=== PATIENT | female | born 1955 | race Caucasian/White ===

== ENCOUNTER → 2018-05-04 12:22 | Outpatient (CLI) | payer MEDICARE, SELFPAY ==
--- NOTE | 2018-05-04 | DI.US.S_ITS ---
ULTRASOUND OF RIGHT BREAST AND AXILLA: 05/04/2018 CLINICAL: Patient returns today to evaluate a density in the right breast. Patient also sees 'saggy' underarm skin in mirror. Comparison is made to exams dated: 05/04/2018 mammogram - [facility], 11/09/2017 mammogram, and 11/05/2015 mammogram - [facility]. Color flow and real-time ultrasound of the right breast axilla were performed. Starr scale images of the real-time examination were reviewed. No abnormalities were seen sonographically in the right breast or the right axilla. IMPRESSION: NEGATIVE There is no sonographic evidence of malignancy. There is no abnormality seen in the right breast to correspond with the area of clinical concern in the axilla or the upper outer quadrant of the right breast where now resolved asymmetry was noted on 2018 mammogram, however, clinical followup is recommended. Return to annual mammogram screening schedule is recommended which is due in approximately 6 months. This exam was interpreted at Station ID: [id number]. Electronically Signed By: Carlton moyer/:05/04/2018 14:17:13 letter sent: Normal Exam Ultrasound BI-RADS: 1 Negative
--- NOTE | 2018-05-04 | DI.MG.S_ITS ---
UNILATERAL RIGHT DIGITAL DIAGNOSTIC MAMMOGRAM 3D/2D WITH ADDITIONAL VIEWS: 05/04/2018 CLINICAL: Additional evaluation requested from prior study. Comparison is made to exams dated: 11/09/2017 mammogram and 11/05/2015 mammogram - [facility]. There are scattered fibroglandular elements in right breast. The asymmetry in the right breast at 9 o'clock middle depth is no longer seen. This is consistent with summation artifact. No other significant masses or calcifications are seen in the breast. IMPRESSION: INCOMPLETE: NEEDS ADDITIONAL IMAGING EVALUATION An ultrasound is recommended to confirm the no longer seen asymmetry in the right breast middle depth. The previously described asymmetry disperses with additional views and is consistent with summation artifact. There is no abnormality seen in the right axilla to correspond with the area of clinical concern and palpable abnormality in the right axilla, however, ultrasound is recommended. This exam was interpreted at Station ID: [id number]. NOTE: For mammograms, a report in lay terms will be sent to the patient. Approximately 15% of breast malignancies will not be visualized mammographically. In the management of a palpable breast mass, a negative mammogram must not discourage biopsy of a clinically suspicious lesion. SUMMARY: An ultrasound is scheduled to immediately follow this examination. Electronically Signed By: Carlton Lockett M.D. aty/:05/04/2018 14:13:36 ACR BI-RADS Category 0: Incomplete [id number]
== END ==
PROVIDERS: PCP Family Medicine; Visit Provider Family Medicine
DX: R92.8 Other abnormal and inconclusive findings on diagnostic imaging of breast (principal)
CPT/HCPCS: 76642; 77065; G0279

== ENCOUNTER → 2020-07-16 08:55 | Outpatient (CLI) | payer MEDICARE, SELFPAY ==
[2020-07-16 19:43] LABS: Add Manual Diff / Slide Review NO; Basophils Absolute Auto 100 /uL (0-100); Basophils Percent Auto 1.3 % (0-2); Eosinophils Absolute Auto 200 /uL (0-450); Eosinophils Percent Auto 3.5 % (2-4); Hematocrit 46.6 % (36-46); Hemoglobin 15.3 g/dL (12.0-16.0); Lymphocytes Absolute Auto 1300 /uL (1100-4500); Lymphocytes Percent Auto 24.8 % (25-40); Mean Corpuscular HGB Conc 32.9 % (30-36); Mean Corpuscular Hemoglobin 30.7 PG (26-34); Mean Corpuscular Volume 93.2 fL (80-100); Monocytes Absolute Auto 500 /uL (0-900); Neutrophils Absolute Auto 3300 /uL (1500-7000); Neutrophils Percent Auto 61.4 % (50-75); Platelet Count 246 X10^3/uL (150-400); Red Blood Cell Count 4.99 X10^6/uL (4.0-5.2); Red Cell Distribution Width 13.7 % (11.6-14.8); White Blood Cell Count 5.3 X10^3/uL (4.5-11.0)
[2020-07-16 19:51] LABS: BUN Creatinine Ratio 25.7 (6-22); Blood Urea Nitrogen 18 mg/dL (7-17); Calcium 9.8 mg/dL (8.4-10.2); Carbon Dioxide 26 mmol/L (22-32); Chloride 107 mmol/L (98-107); Estimated Glomerular Filt Rate > 60.0 mL/min (>60); Glucose 97 mg/dL (80-110); HEMOLYSIS < 15 (0-50); Potassium 4.5 mmol/L (3.4-5.1); Sodium 141 mmol/L (137-145)
[2020-07-16 20:25] LABS: Thyroid Stimulating Hormone 3.75 uIU/mL (0.47-4.68)
== END ==
PROVIDERS: PCP Family Medicine; Visit Provider Family Medicine
DX: E07.9 Disorder of thyroid, unspecified (principal); E55.9 Vitamin D deficiency, unspecified
CPT/HCPCS: 80048; 84443; 85025

== ENCOUNTER → 2021-11-06 09:41 | Outpatient (CLI) | payer MEDICARE, SELFPAY ==
[2021-11-06 20:30] LABS: Influenza A - CEPHEID Flu A NEGATIVE (NEGATIVE); Influenza B - CEPHEID Flu B NEGATIVE (NEGATIVE); Respiratory Syncytial Virus Negative (Negative)
[2021-11-06 20:31] LABS: COVID-19 CEPHEID PCR (VTM/NP) Negative (Negative)
== END ==
PROVIDERS: PCP Family Medicine; Visit Provider Physician Assistant Medical
DX: R05.9 Cough, unspecified (principal); Z20.822 Contact with and (suspected) exposure to COVID-19
CPT/HCPCS: 0241U

== ENCOUNTER 2023-03-10 13:20 | Emergency (ER) | payer MEDICARE, SELFPAY ==
[2023-03-10] VITALS (7 sets, daily range): BP systolic 109–128; BP diastolic 65–96; PULSE 68–109; RESP 16–21; TEMP 36.8; O2SAT 92–97
--- NOTE | 2023-03-10 13:41 | DI.CT.S_ITS ---
PROCEDURE: CT ABDOMEN PELVIS W CON INDICATIONS: RLQ ABDOMINAL PAIN TECHNIQUE: After the administration of intravenous contrast, axial sections acquired from the lung bases to the pubic symphysis. Coronal and sagittal reformats were performed. For radiation dose reduction, the following was used: automated exposure control, adjustment of mA and/or kV according to patient size. COMPARISON: None. FINDINGS: Image quality: Diagnostic. Lower Chest: No significant findings. ABDOMEN: Liver: No solid mass. Gallbladder: No radiopaque gallstones or wall thickening. Biliary ducts: No biliary dilation. Pancreas: No ductal dilation. Spleen: Size is within normal limits. Adrenal Glands: No adrenal nodules. Kidneys and Ureters: No hydronephrosis. No solid mass. No complex renal cystic lesion which requires follow up. Stomach and Bowel: Normal colonic caliber, without significant wall thickening. Normal appendix. Peritoneum: There is a small amount of ascites. Scattered ground-glass densities within the peritoneal fat. No free air. Ventral Wall: No hernia. Abdominal Nodes: No retroperitoneal or mesenteric adenopathy by size criteria. Vessels: Aorta and inferior vena cava are normal in size. PELVIS: Pelvic Organs: There is a complex cystic and solid mass within the left adnexal location measuring 90 mm diameter. Bladder: Unremarkable. Pelvic Nodes: No enlarged lymph nodes. Miscellaneous: No inguinal hernias are seen. Bones: Chronic versus subacute moderate compression fractures of T11 and T12. 8 mm of retropulsion at the superior T12 level, with moderate consequent canal stenosis. IMPRESSION: 1. Left ovarian malignancy. 2. Ascites and mesenteric ground-glass densities, suggestive of peritoneal carcinomatosis. 3. Chronic versus subacute T11-T12 compression fractures as above. Dictated by: Edith Dillard M.D. on 03/10/2023 at 15:49 Approved by: Edith Dillard M.D. on 03/10/2023 at 15:52
--- NOTE | 2023-03-10 13:42 | ED_ITS ---
HPI - Abdominal Pain General Chief Complaint: Abdominal Pain Stated Complaint: abdominal pain, thinks appendicitis Time Seen by Provider: 03/10/23 13:25 History of Present Illness HPI narrative: 59-year-old female with history of left-sided ovarian mass (currently under investigation) presents with right lower quadrant abdominal pain since last night. Pain is sharp, nonradiating, constant with intermittent worsening. She states that she has an appointment with [facility] [employer] [facility] tomorrow at [facility] to discuss surgical biopsy of the ovarian mass, but states that blood tests were reassuring. Related Data Home Medications Medication Instructions Recorded Confirmed cholecalciferol (vitamin D3) 25 25 mcg PO DAILY 07/11/20 01/09/21 mcg (1,000 unit) tablet cyanocobalamin (vitamin B-12) 100 100 mcg PO DAILY 07/11/20 01/09/21 mcg tablet Previous Rx's Medication Instructions Recorded clotrimazole-betamethasone 1 1 applic topical BID 2 weeks #15 07/16/20 %-0.05 % topical cream grams levothyroxine 150 mcg tablet 75 mcg (1/2 x 150 mcg) PO DAILY 02/26/22 #45 tabs hydrocodone 5 mg-acetaminophen 325 1 tab PO Q4-6H PRN pain #14 tabs 03/10/23 mg tablet ondansetron 4 mg disintegrating 4 mg PO Q8H PRN nausea and 03/10/23 tablet vomiting #30 tabs Allergies Allergy/AdvReac Type Severity Reaction Status Date / Time No Known Drug Allergies Allergy Verified 01/09/21 14:27 seasonal Allergy Intermediate Uncoded 01/09/21 14:27 Review of Systems Review of Systems Narrative: Negative except as noted above Patient History Surgical History H/O breast biopsy Hx of tonsillectomy H/O hernia repair H/O colonoscopy Social History Smoking Status: Never smoker Smoking Status: Never smoker Exam Initial Vital Signs Initial Vital Signs: Vital Signs Temperature 98.2 F 03/10/23 13:25 Pulse Rate 109 H 03/10/23 13:25 Respiratory Rate 16 03/10/23 13:25 Blood Pressure 121/96 H 03/10/23 13:25 Pulse Oximetry 97 03/10/23 13:25 Oxygen Delivery Method Room Air 03/10/23 13:25 Const: Awake, alert, no acute distress, nontoxic appearing Cardiac: regular rate, regular rhythm RESP: unlabored, clear bilaterally, no wheezing GI: Atraumatic, soft, right lower quadrant and left lower quadrant tenderness to palpation, no rebound, no guarding MSK: Atraumatic, full range of motion, pulses equal Skin: Warm, Dry, intact, no rashes Neuro: AO x3, CN II-XII grossly intact, moves all extremities Psych: affect normal, mood normal, not suicidal, not homicidal Course Orders Ordered: Discontinued Medications Hydrocodone Bitart/Acetaminophen (Hydrocodone/Acet 5/325 Prepack) 1 bottle MISC DIRECTED ONE Stop: 03/10/23 16:20 Last Admin: 03/10/23 16:32 Dose: 1 bottle Documented By: GLADYS Morphine Sulfate (Morphine 4 Mg/Ml Inj) 4 mg IV NOW ONE Stop: 03/10/23 13:42 Last Admin: 03/10/23 14:38 Dose: 2 mg Documented By: GLADYS Ondansetron HCl (Ondansetron 4 Mg Odt) 4 mg PO NOW PRN PRN Reason: Nausea And Vomiting Ondansetron HCl (Ondansetron 4 Mg/2 Ml Inj) 4 mg IV NOW PRN PRN Reason: Nausea And Vomiting Last Admin: 03/10/23 14:09 Dose: 4 mg Documented By: GLADYS Vital Signs Vital signs: Vital Signs - 8 hr 03/10/23 13:25 03/10/23 14:12 03/10/23 14:20 Temperature 98.2 F Pulse Rate 109 H 90 83 Respiratory Rate 16 Blood Pressure 121/96 H Pulse Oximetry 97 95 92 Oxygen Delivery Method Room Air Room Air 03/10/23 14:20 03/10/23 14:31 03/10/23 14:31 Temperature Pulse Rate 86 Respiratory Rate Blood Pressure 128/78 121/71 Pulse Oximetry 93 Oxygen Delivery Method 03/10/23 15:00 Temperature Pulse Rate 71 Respiratory Rate Blood Pressure Pulse Oximetry 93 Oxygen Delivery Method Room Air MDM - Abdominal Pain Differential Diagnosis Differential diagnosis: Likely abdominal pain, acute appendicitis and calculus of kidney Lab Data 03/10/23 13:55 03/10/23 13:55 Labs: Lab Results 01/17/24 01/17/24 Range/Units 13:55 15:36 WBC 12.0 H (4.5-11.0) X10^3/uL RBC 4.95 (4.0-5.2) X10^6/uL Hgb 14.9 (12.0-16.0) g/dL Hct 44.6 (36-46) % MCV 90.2 (80-100) fL MCH 30.0 (26-34) PG MCHC 33.3 (30-36) % RDW 13.5 (11.6-14.8) % Plt Count 238 (150-400) X10^3/uL Neut % (Auto) 87.4 H (50-75) % Lymph % (Auto) 6.0 L (25-40) % [place] % (Auto) 6.0 (3-14) % Eos % (Auto) 0.1 L (2-4) % Baso % (Auto) 0.5 (0-2) % Neut # (Auto) 52424 H (8343-4920) /uL Lymph # (Auto) 700 L (3895-4821) /uL [place] # (Auto) 700 (0-900) /uL Eos # (Auto) 0 (0-450) /uL Baso # (Auto) 100 (0-100) /uL Sodium 137 (137-145) mmol/L Potassium 4.1 (3.4-5.1) mmol/L Chloride 105 (98-107) mmol/L Carbon Dioxide 24 (22-32) mmol/L BUN 18 H (7-17) mg/dL Creatinine 0.58 (0.52-1.04) mg/dL Estimated GFR > 60 (>60) mL/min BUN/Creatinine Ratio 31.0 H (6-22) Glucose 140 H (80-110) mg/dL Calcium 10.2 (8.4-10.2) mg/dL Total Bilirubin 1.2 (0.2-1.3) mg/dL AST 23 (14-36) IU/L ALT 18 (<35) IU/L Alkaline Phosphatase 85 (38-126) U/L Total Protein 7.4 (6.3-8.2) g/dL Albumin 4.1 (3.5-5.0) g/dL Globulin 3.3 (1.7-4.1) g/dL Albumin/Globulin Ratio 1.2 (1.0-2.8) Lipase 51 (23-300) U/L Ur Bilirubin Confirm TNP Urine RBC None seen (0-5/HPF) Urine WBC None seen (0-5/HPF) Ur Squamous Epith Cells 0-1 /hpf (0-5/HPF) Urine Bacteria None seen (None) Point of care testing: Urine Dip Bedside Urine Glucose Negative Bedside Urine Bilirubin + 1 Bedside Urine Ketone +/- 5 Urine Specific [place] 1.030 Bedside Urine Occult Blood - Negative Bedside Urine pH 6.0 Bedside Urine Protein +/- 15 Bedside Urine Urobilinogen - Negative Bedside Urine Nitrite - Negative Bedside Urine Leukocytes - Negative Esterase MDM Narrative Medical decision making narrative: Right lower quadrant pain and patient with known ovarian mass. Abdomen is soft but she is tender in the right lower quadrant. Pain and nausea medications ordered. We will order labs and CT imaging. Laboratory work is reviewed, mild leukocytosis 12.0, nonspecific. Chemistry within normal limits. No evidence of UTI. CT of the abdomen and pelvis is reviewed, there is mild trace ascites in the upper quadrants, radiology notes ground-glass mesenteric densities which is suggestive of peritoneal carcinomatosis. The known mass in the left pelvis is reported to be complex cystic and solid measuring 9 cm in diameter. In addition there appeared to be chronic T11 and T12 compression fractures noted, however patient denies back pain to myself. A copy of the images was pushed to [facility] by radiology, and a printout of the radiology report was provided to the patient and her . 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 I explained that I could not definitively diagnosed cancer without biopsy, however it was very concerning and definitely requires close follow up with specialist. Patient already has scheduled follow up at [facility] tomorrow with [facility] [employer] to discuss possible surgical biopsy versus other treatments. She was informed that the images had been sent over to [facility] and was instructed to bring a copy of the CT report with her to her appointment tomorrow. Pain medications provided. Discharge Plan Departure Patient Disposition: Home Clinical Impression: Abnormal computed tomography angiography (CTA) of abdomen and pelvis Abdominal pain Qualifiers: Abdominal location: right lower quadrant Qualified Code(s): R10.31 - Right lower quadrant pain Instructions: DI for Abdominal Pain-Adult Prescriptions: New ondansetron 4 mg tablet,disintegrating 4 mg PO Q8H PRN (Reason: nausea and vomiting) Qty: 30 0RF hydrocodone-acetaminophen 5-325 mg tablet 1 tab PO Q4-6H PRN (Reason: pain) Qty: 14 0RF No Action levothyroxine 150 mcg tablet 75 mcg PO DAILY Qty: 45 0RF Rx Instructions: TAKE 0.5 TABLET (75 MCG) BY MOUTH DAILY ON AN EMPTY STOMACH clotrimazole-betamethasone 1-0.05 % cream 1 applic topical BID 14 Days Qty: 15 3RF cyanocobalamin (vitamin B-12) 100 mcg tablet 100 mcg PO DAILY cholecalciferol (vitamin D3) 25 mcg (1,000 unit) tablet 25 mcg PO DAILY Referrals: Arlen Medel MD [Primary Care Provider] - Stand Alone Forms: Patient Portal/API
[2023-03-10 14:02] LABS: Add Manual Diff / Slide Review NO; Basophils Absolute Auto 100 /uL (0-100); Basophils Percent Auto 0.5 % (0-2); Eosinophils Absolute Auto 0 /uL (0-450); Eosinophils Percent Auto 0.1 % (2-4); Hematocrit 44.6 % (36-46); Hemoglobin 14.9 g/dL (12.0-16.0); Lymphocytes Absolute Auto 700 /uL (1100-4500); Mean Corpuscular HGB Conc 33.3 % (30-36); Mean Corpuscular Volume 90.2 fL (80-100); Monocytes Absolute Auto 700 /uL (0-900); Neutrophils Absolute Auto 10500 /uL (1500-7000); Neutrophils Percent Auto 87.4 % (50-75); Platelet Count 238 X10^3/uL (150-400); Red Blood Cell Count 4.95 X10^6/uL (4.0-5.2); Red Cell Distribution Width 13.5 % (11.6-14.8)
[2023-03-10] MEDS: ONDANSETRON 4 MG/2 ML INJ IV (14:09)
[2023-03-10 14:33] LABS: Alanine Aminotransferase 18 IU/L (<35); Albumin 4.1 g/dL (3.5-5.0); Albumin Globulin Ratio 1.2 (1.0-2.8); Alkaline Phosphatase 85 U/L (38-126); Aspartate Aminotransferase 23 IU/L (14-36); Bilirubin Total 1.2 mg/dL (0.2-1.3); Blood Urea Nitrogen 18 mg/dL (7-17); Calcium 10.2 mg/dL (8.4-10.2); Carbon Dioxide 24 mmol/L (22-32); Chloride 105 mmol/L (98-107); Estimated Glomerular Filt Rate > 60 mL/min (>60); Globulin 3.3 g/dL (1.7-4.1); Glucose 140 mg/dL (80-110); HEMOLYSIS < 15 (0-50); Lipase 51 U/L (23-300); Potassium 4.1 mmol/L (3.4-5.1); Sodium 137 mmol/L (137-145); Total Protein 7.4 g/dL (6.3-8.2)
[2023-03-10] MEDS: MORPHINE 4 MG/ML INJ IV (14:38)
[2023-03-10 16:28] LABS: Bacteria Urine None Seen; RBC Urine None Seen (0-5/HPF); Squamous Epithelial Cell Urine 0-1 /HPF (0-5/HPF); WBC Urine None Seen (0-5/HPF)
[2023-03-10] MEDS: HYDROCODONE/ACET 5/325 PREPACK 1 BOTTLE MISC (16:32)
== END 2023-03-10 16:40 | disposition home or self-care (01) ==
PROVIDERS: Emergency Provider Emergency Medicine; PCP Specialist
DX: R10.31 Right lower quadrant pain (principal); R93.5 Abnormal findings on diagnostic imaging of other abdominal regions, including retroperitoneum
CPT/HCPCS: 36415; 74177; 80053; 81003; 81015; 83690; 85025; 87086; 93005; 93010; 96374; 96375; 99284; J2270; J2405; Q9967

== ENCOUNTER → 2023-11-03 07:43 | Outpatient (CLI) | payer MEDICARE, SELFPAY ==
--- NOTE | 2023-11-03 | DI.CT.S_ITS ---
PROCEDURE: CT CHEST ABD PEL W CON INDICATIONS: Malignant neoplasm of left ovary TECHNIQUE: After the administration of intravenous contrast, 5 mm thick sections acquired from the lung apices to the symphysis. 5 mm coronal and sagittal reformats were performed, with additional 7 mm MIP reformats through the lungs. For radiation dose reduction, the following was used: automated exposure control, adjustment of mA and/or kV according to patient size. COMPARISON: Merged With [facility], CT, CT ABDOMEN PELVIS W CON, 03/10/2023, 15:07. FINDINGS: Image quality: Excellent. CHEST: Lungs and Pleura: 7 mm calcified nodule within the lateral left lower lobe (series 3, image 185) and a 5 mm perifissural nodule along the anterior superior segment left lower lobe abutting the major fissure (series 3, image 155). No suspicious pulmonary nodules or masses. No focal airspace opacity or consolidation. No evidence of pneumothorax or pleural effusion. Biapical pleural thickening noted. Lower Neck: No enlarged lymph nodes. Thyroid: 1 cm hypodense nodule within the left thyroid lobe. Axillae: No enlarged lymph nodes. Chest Wall: Unremarkable. Heart: Heart size is normal. No pericardial effusion. Thoracic Vessels: The aorta and pulmonary arteries demonstrate normal size. Mediastinum and [place]: No enlarged lymph nodes. Esophagus: No wall thickening. No hiatal hernia. ABDOMEN: Liver: Several tiny low-density lesions scattered throughout the spleen most likely cysts. No solid focal mass lesion. Gallbladder: No radiopaque gallstones or wall thickening. Biliary ducts: No biliary dilation. Pancreas: No pancreatic mass. No pancreatic duct dilatation or inflammatory changes. Spleen: Size is within normal limits. Adrenal Glands: No adrenal nodules. Kidneys and Ureters: No renal or ureteral calculi. No evidence of hydronephrosis. No solid renal mass. Stomach and Bowel: Small large bowel appear normal in caliber without evidence of bowel obstruction. Diverticulosis of the sigmoid colon without evidence of diverticulitis. Peritoneum: No peritoneal nodules or masses. No evidence of pneumoperitoneum. No abdominal or pelvic fluid collections. Ventral Wall: No significant ventral hernia. Abdominal Nodes: No retroperitoneal or mesenteric adenopathy by size criteria. Vessels: Aorta and inferior vena cava are normal in size. PELVIS: Pelvic Organs: Uterus is surgically absent. Interval resection of left ovarian mass. Bladder: No bladder wall thickening, accounting for underdistention. Pelvic Nodes: No enlarged lymph nodes. Miscellaneous: No inguinal hernias are seen. Bones: No aggressive osseous abnormality. Stable chronic compression deformities of T11 and T12. IMPRESSION: No evidence of recurrence or metastatic disease within the chest, abdomen or pelvis. Dictated by: Rubén Kilpatrick M.D. on 11/03/2023 at 15:24 Approved by: Rubén Kilpatrick M.D. on 11/03/2023 at 15:36
[2023-11-03 08:20] LABS: Estimated Glomerular Filt Rate > 60 mL/min (>60)
== END ==
PROVIDERS: Radiology Diagnostic Radiology; PCP Specialist; Referring Provider Obstetrics & Gynecology; Visit Provider Obstetrics & Gynecology
DX: C56.2 Malignant neoplasm of left ovary (principal); M43.8X4 Other specified deforming dorsopathies, thoracic region; Z90.710 Acquired absence of both cervix and uterus
CPT/HCPCS: 36415; 71260; 74177; 82565; Q9967

== ENCOUNTER → 2023-11-10 13:57 | Outpatient (CLI) | payer MEDICARE, SELFPAY | PROVIDERS: PCP Specialist; Referring Provider Obstetrics & Gynecology; Visit Provider Obstetrics & Gynecology | DX: C56.2 Malignant neoplasm of left ovary (principal) | CPT/HCPCS: 36415 ==

== ENCOUNTER → 2024-05-10 11:42 | Outpatient (CLI) | payer SELFPAY | PROVIDERS: PCP Specialist; Referring Provider Obstetrics & Gynecology; Visit Provider Obstetrics & Gynecology | DX: C56.2 Malignant neoplasm of left ovary (principal) | CPT/HCPCS: 36415 ==

== ENCOUNTER → 2024-06-01 11:25 | Outpatient (CLI) | payer MEDICARE, OTHER, SELFPAY ==
[2024-06-01 20:04] LABS: TSH w/ Reflex to FT4 1.82 uIU/mL (0.47-4.68)
== END ==
PROVIDERS: PCP Specialist; Visit Provider Specialist
DX: E03.9 Hypothyroidism, unspecified (principal)
CPT/HCPCS: 84443

== ENCOUNTER 2024-08-21 14:53 | Emergency (ER) | payer MEDICARE, OTHER, SELFPAY ==
[2024-08-21] VITALS (7 sets, daily range): BP systolic 133–149; BP diastolic 62–85; PULSE 63–94; RESP 17–20; TEMP 36.6–37; O2SAT 92–97; BMI 25.8
--- NOTE | 2024-08-21 15:11 | DI.CT.S_ITS ---
PROCEDURE: CT ABDOMEN PELVIS W CON INDICATIONS: RLQ pain TECHNIQUE: After the administration of intravenous contrast, axial sections acquired from the lung bases to the pubic symphysis. Coronal and sagittal reformats were performed. For radiation dose reduction, the following was used: automated exposure control, adjustment of mA and/or kV according to patient size. COMPARISON: [facility], CT, CT ABDOMEN PELVIS W CON, 03/10/2023, 15:07. FINDINGS: Image quality: Diagnostic. Lower Chest: No significant findings. ABDOMEN: Liver: No solid mass. Well-circumscribed hypodensities are again seen scattered in liver parenchyma too small to adequately characterize. Gallbladder: No radiopaque gallstones or wall thickening. Biliary ducts: No biliary dilation. Pancreas: No ductal dilation. Spleen: Size is within normal limits. Adrenal Glands: No adrenal nodules. Kidneys and Ureters: There is [id number] right-sided hydronephrosis and proximal to mid hydroureter. 4 mm stone is noted in distal right ureter series 2, image 109. No left-sided hydronephrosis or hydroureter. No solid mass. No complex renal cystic lesion which requires follow up. Stomach and Bowel: There is no bowel obstruction. No abnormal bowel wall thickening or mesenteric fat stranding. No abscess collection. Appendix is identified is within normal limits. Sigmoid diverticulosis is seen without CT evidence of acute diverticulitis. Peritoneum: No abnormal intraperitoneal fluid. No free air. Ventral Wall: No significant ventral hernia. Abdominal Nodes: No retroperitoneal or mesenteric adenopathy by size criteria. Vessels: Aorta and inferior vena cava are normal in size. PELVIS: Pelvic Organs: Unremarkable. Bladder: No bladder wall thickening, accounting for underdistention. Pelvic Nodes: No enlarged lymph nodes. Miscellaneous: No inguinal hernias are seen. Bones: No aggressive osseous abnormality. Chronic appearing anterior wedge compression deformity at T11 and T12 levels are again seen. Superior endplate compression deformity at L3 level is seen new since previous study. IMPRESSION: 1. 4 mm distal right ureteral stone with [id number] right-sided hydronephrosis and proximal to mid hydroureter. No left-sided stones or hydronephrosis. 2. No bowel obstruction or abnormal bowel wall thickening. Normal appendix. Sigmoid diverticulosis without CT evidence of acute diverticulitis. 3. Age indeterminate superior endplate compression deformity at L3 level new since 2023 study. Chronic appearing superior endplate compression deformities at T11 and T12 levels. Dictated by: Sheldon Peck M.D. on 08/21/2024 at 16:13 Approved by: Sheldon Peck M.D. on 08/21/2024 at 16:18
[2024-08-21 15:15] LABS: Add Manual Diff / Slide Review NO; Basophils Absolute Auto 0 /uL (0-100); Basophils Percent Auto 0.3 % (0-2); Eosinophils Absolute Auto 0 /uL (0-450); Hematocrit 45.2 % (36-46); Hemoglobin 15.1 g/dL (12.0-16.0); Lymphocytes Absolute Auto 500 /uL (1100-4500); Lymphocytes Percent Auto 4.9 % (25-40); Mean Corpuscular HGB Conc 33.4 % (30-36); Mean Corpuscular Hemoglobin 30.8 PG (26-34); Mean Corpuscular Volume 92.1 fL (80-100); Monocytes Absolute Auto 400 /uL (0-900); Neutrophils Absolute Auto 9900 /uL (1500-7000); Neutrophils Percent Auto 90.8 % (50-75); Platelet Count 286 X10^3/uL (150-400); Red Blood Cell Count 4.91 X10^6/uL (4.0-5.2); Red Cell Distribution Width 13.6 % (11.6-14.8); White Blood Cell Count 10.9 X10^3/uL (4.5-11.0)
[2024-08-21 15:26] LABS: Alanine Aminotransferase 29 IU/L (<35); Albumin 4.7 g/dL (3.5-5.0); Albumin Globulin Ratio 1.3 (1.0-2.8); Alkaline Phosphatase 104 U/L (38-126); Aspartate Aminotransferase 31 IU/L (14-36); BUN Creatinine Ratio 30.6 (6-22); Bilirubin Total 0.7 mg/dL (0.2-1.3); Blood Urea Nitrogen 22 mg/dL (7-17); Carbon Dioxide 24 mmol/L (22-32); Chloride 107 mmol/L (98-107); Estimated Glomerular Filt Rate > 60 mL/min (>60); Globulin 3.6 g/dL (1.7-4.1); Glucose 122 mg/dL (70-99); HEMOLYSIS < 15 (0-50); Potassium 4.5 mmol/L (3.4-5.1); Sodium 140 mmol/L (137-145); Total Protein 8.3 g/dL (6.3-8.2)
[2024-08-21 15:28] LABS: Lactate (Lactic Acid) 1.4 mmol/L (0.7-2.1)
[2024-08-21 16:53] LABS: Appearance Urine UA CLOUDY; Bilirubin Urine UA NEGATIVE (NEGATIVE); Color Urine UA YELLOW; Glucose Urine UA NEGATIVE (Negative); Ketones Urine UA TRACE (NEGATIVE); Leukocyte Esterase Urine UA 1+ (NEGATIVE); Nitrite Urine UA POSITIVE (Negative); Occult Blood Urine UA 3+ (Negative); Protein Urine UA TRACE (Negative); Specific Gravity Urine UA 1.025 (1.000-1.035); pH Urine UA 5.5 (4.5-8.0)
[2024-08-21 16:59] LABS: Bacteria Urine Many (>30); Culture Indicated Urine Specimen Cultured; Mucus Urine 2+ (Negative); RBC Urine 10-30/HPF (0-5/HPF); Squamous Epithelial Cell Urine 0-1 /HPF (0-5/HPF); Urine Volume Low Vol <10mL (spun); WBC Urine 5-10/HPF (0-5/HPF)
[2024-08-21] MEDS: SODIUM CHLORIDE 0.9% 1,000 ML 1000 ML IV (17:04)
--- NOTE | 2024-08-21 17:26 | ED_ITS ---
HPI - General Adult General Chief complaint: Abdominal Pain Stated complaint: Mid stomach pain today Time Seen by Provider: 08/21/24 15:05 Source: patient Mode of arrival: Ambulatory History of Present Illness HPI narrative: 68-year-old woman with a history of hypothyroidism presents with severe right lower quadrant pain awoke her from sleep at 3:00 a.m. she has been vomiting, comes to the ER from [facility]. She states the last time she had pain like this it was a torsed ovarian cyst on the left side she has since had hysterectomy and no longer has either ovary. She has not had an appendectomy. She does not describe fevers, chills, chest pain, palpitations, headache Related Data Home Medications ?Medication ?Instructions ?Recorded ?Confirmed cholecalciferol (vitamin D3) 25 25 mcg PO DAILY 08/21/24 mcg (1,000 unit) tablet cyanocobalamin (vitamin B-12) 100 100 mcg PO DAILY 08/21/24 mcg tablet levothyroxine 75 mcg tablet 75 mcg PO DAILY 09/22/23 0 08/21/24 Previous Rx's ?Medication ?Instructions ?Recorded clotrimazole-betamethasone 1 1 applic topical BID 2 we eks #15 07/16/20 %-0.05 % topical cream grams hydrocodone 5 mg-acetaminophen 325 1 tab PO Q4-6H PRN pain #14 tabs 03/10/23 mg tablet ondansetron 4 mg disintegrating 4 mg PO Q8H PRN nausea and 03/10/23 tablet vomiting #30 tabs oxycodone-acetaminophen 5 mg-325 1 tab PO Q6H PRN pain #14 tabs 08/21/24 mg tablet tamsulosin 0.4 mg capsule 0.4 mg PO DAILY #20 caps Allergies Allergy/AdvReac Type Severity Reaction Status Date / Time No Known Drug Allergies Allergy Verified 08/21/24 14:56 seasonal Allergy Intermediate Uncoded 08/21/24 14:56 Review of Systems Review of Systems Narrative: Pertinent positive and negative findings as per HPI Patient History Surgical History H/O breast biopsy Hx of tonsillectomy H/O hernia repair H/O colonoscopy Social History Smoking Status: Former smoker Smoking Status: Former smoker Exam Initial Vital Signs Initial Vital Signs: Vital Signs Temperature 97.9 F 08/21/24 14:56 Pulse Rate 94 H 08/21/24 14:56 Respiratory Rate 17 08/21/24 14:56 Blood Pressure 140/85 08/21/24 14:56 Pulse Oximetry 95 08/21/24 14:56 Oxygen Delivery Method Room Air 08/21/24 14:56 General: She is in moderate pain but able to cooperate fully with the HEENT: Moist mucous membranes, normal sclera with reactive pupils,clear to auscultation, no wheezing no rales no rhonchi. Full and symmetrical air movement Cardiac: Regular rate and rhythm no murmurs no bruits Abdomen: Soft, significant tenderness in the right lower quadrant without rebound or guarding. She did not have flank tenderness Skin: Warm and dry, no rashes Neurologic: Grossly neurologically intact with no obvious asymmetries or abnormalities Extremities: No trauma, Psych: Cooperative, appropriate insight and affect Course Orders Ordered: ED Orders 08/21/24 15:07 Complete Blood Count AUTO DIFF Stat Comprehensive Metabolic Panel Stat Lactate (Lactic Acid) Stat 08/21/24 15:11 CT abdomen pelvis w con Stat 08/21/24 16:40 Urinalysis and Microscopic Stat Urine Culture Stat Hydromorphone HCl (Hydromorphone 0.5 Mg Inj) 0.5 mg IV Q15MIN PRN PRN Reason: Pain, Discontinued Medications Sodium Chloride (Normal Saline 0.9%) 1,000 mls @ 1,000 mls/hr IV BOLUS ONE Stop: 08/21/24 16:09 Last Admin: 08/21/24 17:04 Dose: 1,000 mls/hr Documented By: TRE Ondansetron HCl (Ondansetron 4 Mg/2 Ml Inj) 4 mg IV NOW ONE Stop: 08/21/24 15:11 Vital Signs Vital signs: Vital Signs - 8 hr 08/21/24 14:56 Temperature 97.9 F Pulse Rate 94 H Respiratory Rate 17 Blood Pressure 140/85 Pulse Oximetry 95 Oxygen Delivery Method Room Air Medical Decision Making Lab Data 08/21/24 15:07 08/21/24 15:07 Labs: Lab Results 06/30/25 06/30/25 Range/Units 15:07 16:40 WBC 10.9 (4.5-11.0) X10^3/uL RBC 4.91 (4.0-5.2) X10^6/uL Hgb 15.1 (12.0-16.0) g/dL Hct 45.2 (36-46) % MCV 92.1 (80-100) fL MCH 30.8 (26-34) PG MCHC 33.4 (30-36) % RDW 13.6 (11.6-14.8) % Plt Count 286 (150-400) X10^3/uL Neut % (Auto) 90.8 H (50-75) % Lymph % (Auto) 4.9 L (25-40) % Gordon % (Auto) 4.0 (3-14) % Eos % (Auto) 0.0 L (2-4) % Baso % (Auto) 0.3 (0-2) % Neut # (Auto) 9900 H (9226-3000) /uL Lymph # (Auto) 500 L (3775-4059) /uL Gordon # (Auto) 400 (0-900) /uL Eos # (Auto) 0 (0-450) /uL Baso # (Auto) 0 (0-100) /uL Sodium 140 (137-145) mmol/L Potassium 4.5 (3.4-5.1) mmol/L Chloride 107 (98-107) mmol/L Carbon Dioxide 24 (22-32) mmol/L BUN 22 H (7-17) mg/dL Creatinine 0.72 (0.52-1.04) mg/dL Estimated GFR > 60 (>60) mL/min BUN/Creatinine Ratio 30.6 H (6-22) Glucose 122 H (70-99) mg/dL Lactate 1.4 (0.7-2.1) mmol/L Calcium 10.0 (8.4-10.2) mg/dL Total Bilirubin 0.7 (0.2-1.3) mg/dL AST 31 (14-36) IU/L ALT 29 (<35) IU/L Alkaline Phosphatase 104 (38-126) U/L Total Protein 8.3 H (6.3-8.2) g/dL Albumin 4.7 (3.5-5.0) g/dL Globulin 3.6 (1.7-4.1) g/dL Albumin/Globulin Ratio 1.3 (1.0-2.8) Urine Color Yellow Urine Appearance Cloudy Urine pH 5.5 (4.5-8.0) Ur Specific [place] 1.025 (1.000-1.035) Urine Protein Trace H (Negative) Urine Glucose (UA) Negative (Negative) g/dL Urine Ketones Trace H (NEGATIVE) Urine Occult Blood 3+ H (Negative) Urine Nitrate Positive H (Negative) Urine Bilirubin Negative (NEGATIVE) Urine Urobilinogen 1.0 (0.2) E.U./dL Ur Leukocyte Esterase 1+ H (NEGATIVE) Urine RBC 10-30/hpf H (0-5/HPF) Urine WBC 5-10/hpf H (0-5/HPF) Ur Squamous Epith Cells 0-1 /hpf (0-5/HPF) Urine Bacteria Many (>30) H (None) Urine Mucus 2+ H (Negative) Ur Culture Indicated? Specimen cultured Vol Urine Centrifuged Low vol <10ml (spun) A MDM Narrative Medical decision making narrative: 68-year-old woman presents with the acute right lower quadrant abdominal pain starting 3:00 a.m.. Labs reassuring with no signs of renal dysfunction, electrolyte abnormalities. CT scan indicates a 4 mm kidney stone in the distal right ureter consistent with the presentation and exam. She has [id number] hydronephrosis. There was no signs of acute appendicitis or alternate explanation that would require further workup or hospitalization. She has responded well to fluids, Dilaudid, Zofran and Toradol. We discussed kidney stones, pain, anticipated course of resolution, went to return to the emergency department and medications for appropriate treatment. At this point she is safe for discharge home Discharge Plan Departure Patient Disposition: Home Clinical Impression: Ureterolithiasis, Kidney stone Instructions: DI for Kidney Stones Activity Restrictions/Additional Instructions: Thank you for coming in today You have a 4 mm kidney stone on the right side. This is a very likely the cause of your abdominal pain. There was no evidence of infection, appendicitis, kidney abnormalities or other reasons for immediate concern or hospitalization With kidney stones, we typically give you a medicine called tamsulosin. This helps relax the tissue in the ureter, the tube between the kidney and the bladder, to help the kidney stone pass more easily. After you have passed the stone you can stop the tamsulosin. You were given the 1st dose of this medication in the emergency department Using 400 mg of ibuprofen (2 wevw-hod-rwwwxaq pills) and 1 Tylenol every 6 hours can be very helpful in controlling pain. For severe pain you can use 400 mg of ibuprofen and 1 Percocet. Percocet is a narcotic and will cause constipation. 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 Typically we are not going to have the degree of pain that you had when you presented. If you get to that level of pain, develop a fever, new symptoms or other concerns you do need to return to the emergency department. Prescriptions for Percocet as well as tamsulosin were electronically transmitted to [facility] [[email or web address] Pharmacy Prescriptions: New oxycodone-acetaminophen 5-325 mg tablet 1 tab PO Q6H PRN (Reason: pain) Qty: 14 0RF tamsulosin 0.4 mg capsule 0.4 mg PO DAILY Qty: 20 0RF Rx Instructions: discontinue after passing kidney stone No Action ondansetron 4 mg tablet,disintegrating 4 mg PO Q8H PRN (Reason: nausea and vomiting) Qty: 30 0RF hydrocodone-acetaminophen 5-325 mg tablet 1 tab PO Q4-6H PRN (Reason: pain) Qty: 14 0RF levothyroxine 75 mcg tablet 75 mcg PO DAILY clotrimazole-betamethasone 1-0.05 % cream 1 applic topical BID 14 Days Qty: 15 3RF cyanocobalamin (vitamin B-12) 100 mcg tablet 100 mcg PO DAILY cholecalciferol (vitamin D3) 25 mcg (1,000 unit) tablet 25 mcg PO DAILY Referrals: Arlen Medel MD [Primary Care Provider, Family Practice] Stand Alone Forms: Patient Portal/API
[2024-08-21] MEDS: HYDROMORPHONE 0.5 MG INJ IV (18:20)
[2024-08-21] MEDS: ONDANSETRON 4 MG/2 ML INJ IV (18:21)
[2024-08-21] MEDS: OXYCODONE/ACETAMINOPHEN 5/325 TABLET 1 TAB PO (18:34)
[2024-08-21] MEDS: OXYCODONE/APAP 5/325 PREPACK 1 BOTTLE MISC (18:34)
[2024-08-21] MEDS: KETOROLAC 30 MG/ML VIAL 15 MG IV (18:35)
[2024-08-21] MEDS: TAMSULOSIN 0.4 MG CAPSULE PO (18:35)
== END 2024-08-21 18:46 | disposition home or self-care (01) ==
PROVIDERS: Emergency Provider Emergency Medicine; PCP Specialist
DX: N20.1 Calculus of ureter (principal); N20.0 Calculus of kidney
CPT/HCPCS: 36415; 74177; 80053; 81001; 83605; 85025; 87077; 87086; 87186; 96361; 96374; 96375; 99284; J1171; J1885; J2405; Q9967

== ENCOUNTER → 2024-09-12 09:28 | Outpatient (CLI) | payer MEDICARE, OTHER, SELFPAY ==
[2024-09-12 10:44] LABS: Natera Collection Specimen Collected
== END ==
PROVIDERS: Obstetrics & Gynecology; PCP Specialist; Referring Provider Specialist; Visit Provider Specialist
DX: E03.9 Hypothyroidism, unspecified (principal)
CPT/HCPCS: 36415